=== PATIENT | female | born 1945 | race Two or more races ===

== ENCOUNTER 2021-02-25 16:26 | Emergency (ER) | payer OTHER ==
[~2021-02-25] VITALS: Ht 157.5 cm; Wt 57.6 kg
[2021-02-25] MEDS ORDERED: SYNTHROID88 MCG (16:45)
[2021-02-25] MEDS ORDERED: ZIAC 2.5-6.251 EACH (16:46)
== END 2021-02-25 19:53 | disposition home or self-care (01) ==
LOC: ER 16:26
DX: B35.4 Tinea corporis (principal); R63.4 Abnormal weight loss

== ENCOUNTER 2021-08-03 12:15 | Emergency (ER) | payer OTHER ==
[~2021-08-03] VITALS: Ht 160 cm; Wt 55.3 kg
[~2021-08-03 12:15] MED LIST: SYNTHROID88 MCG; ZIAC 2.5-6.251 EACH
[2021-08-03] MEDS ORDERED: COZAAR50 MG PO (12:34)
[2021-08-03] MEDS ORDERED: SYNTHROID88 MCG PO (12:34)
[2021-08-03] MEDS ORDERED: ARICEPT10 MG PO (12:34)
[2021-08-03] MEDS ORDERED: NAMENDA XR1 EACH PO (12:34)
== END 2021-08-03 17:21 | disposition home or self-care (01) ==
LOC: ER 12:15
DX: K29.70 Gastritis, unspecified, without bleeding (principal); I16.0 Hypertensive urgency; I10 Essential (primary) hypertension; G30.8 Other Alzheimer's disease; F02.80 Dementia in other diseases classified elsewhere, unspecified severity, without behavioral disturbance, psychotic disturbance, mood disturbance, and anxiety

== ENCOUNTER 2021-08-11 21:57 | Inpatient (IN) | payer OTHER ==
[~2021-08-11] VITALS: Ht 160 cm; Wt 55.3 kg
[~2021-08-11 21:57] MED LIST changes: +ARICEPT10 MG PO; +COZAAR50 MG PO; +NAMENDA XR1 EACH PO; +SYNTHROID88 MCG PO
== END 2021-08-15 11:13 | disposition home or self-care (01) | DRG 310 ==
LOC: MEDJ 21:57 → MEDI 22:15 → MEDJ 08-12 03:02
PROVIDERS: ADMIT Internal Medicine; ATTEND Internal Medicine
PROC: 4A12X4Z Monitoring of Cardiac Electrical Activity, External Approach (ICD-10-PCS; principal; 2021-08-12)
DX: R00.1 Bradycardia, unspecified (principal); I10 Essential (primary) hypertension; E03.8 Other specified hypothyroidism; G30.9 Alzheimer's disease, unspecified; F02.80 Dementia in other diseases classified elsewhere, unspecified severity, without behavioral disturbance, psychotic disturbance, mood disturbance, and anxiety

== ENCOUNTER 2022-04-16 18:18 | Emergency (ER) | payer OTHER ==
[~2022-04-16] VITALS: Ht 152.4 cm; Wt 68.0 kg
[2022-04-16] MEDS ORDERED: RIVASTIGMINE1.5 MG (18:32)
[2022-04-16] MEDS ORDERED: PEPCID AC20 MG PO (20:09)
[2022-04-16] MEDS ORDERED: ZOFRAN8 MG PO (20:09)
== END 2022-04-16 20:16 | disposition home or self-care (01) ==
LOC: ER 18:18
DX: K29.70 Gastritis, unspecified, without bleeding (principal); R10.13 Epigastric pain; R11.2 Nausea with vomiting, unspecified; I10 Essential (primary) hypertension; Z20.822 Contact with and (suspected) exposure to COVID-19

== ENCOUNTER 2022-04-30 14:27 | Inpatient (IN) | payer OTHER ==
[~2022-04-30] VITALS: Ht 157.5 cm; Wt 56.2 kg
[~2022-04-30 14:27] MED LIST changes: +PEPCID AC20 MG PO; +RIVASTIGMINE1.5 MG; +ZOFRAN8 MG PO
--- NOTE | 2022-04-30 15:52 | NUR ---
SE RECIBE PTE ALERTA Y ORIENTADA X3. HIJA DE PTE REFIERE LA MISMA DESDE LA SEMANA PASADA COMENZO CON VOMITOS Y DIARREAS, LA MISMA HABIA SIDO TRAIDA A PEPPER DE EMERGENCIA FUE ELIJAH DE SUSANNA Y MEJORO. PATRIC PASADO LUNES COMENZARON NUEVAMENTE LAS DIARREAS Y LA HIJA DE PTE VERBALIZA LA MISMA NO TIENE APETITO. SE STEPHANIE S/V Y SE UBICA PTE EN AREA DE OBSERVACION.
== END 2022-05-04 21:57 | disposition home or self-care (01) | DRG 392 ==
LOC: ER 14:27 → MEDJ 05-01 00:54 → SEC-K 05-01 00:54 → MEDJ 05-01 00:59
PROVIDERS: ADMIT Internal Medicine; ATTEND Internal Medicine
PROC: BW2110Z Computerized Tomography (CT Scan) of Abdomen and Pelvis using Low Osmolar Contrast, Unenhanced and Enhanced (ICD-10-PCS; principal; 2022-05-02)
DX: K52.89 Other specified noninfective gastroenteritis and colitis (principal); E86.0 Dehydration; I10 Essential (primary) hypertension; K29.70 Gastritis, unspecified, without bleeding; F02.80 Dementia in other diseases classified elsewhere, unspecified severity, without behavioral disturbance, psychotic disturbance, mood disturbance, and anxiety; G30.8 Other Alzheimer's disease; Z20.822 Contact with and (suspected) exposure to COVID-19